=== PATIENT | female | born 1995 | race Caucasian/White ===

== ENCOUNTER → 2023-05-09 | Outpatient (CLI) | payer BC ==
[~2023-05-09] MED LIST: ACHD5005 PO; AMOX500C2; D-ME473S42; FEXO60TA; TRAM50TA2; TRM50T PO
--- NOTE | 2023-05-09 15:46 | Diagnostic Imaging Report ---
INDICATION: survey. TECHNIQUE: Multiple real-time grayscale images were obtained over the gravid uterus. COMPARISON: None FINDINGS: There is a single live fetus in a breech presentation. heart rate was recorded at 147 BPM. Placenta is fundal. No previa is detected. The amniotic fluid index is 12.3 cm. Cervical length is 4.6 cm. survey shows kidneys, bladder, and stomach to be unremarkable. brain is unremarkable. There is a four-chamber heart. There is a three-vessel cord with normal insertion. spine is unremarkable. Biometrical measurements are as follows: Biparietal 4.76 cm, age 20 weeks 3 days. Head circumference 17.65 cm, age 20 weeks 1 days. Abdominal circumference 15.89 cm, age 21 weeks 1 days. Femur length 3.22 cm, age 20 weeks 1 days. Sonographic estimate age: 20 weeks 4 days. Sonographic estimated date of delivery: 09/22/2023. Estimated Weight: 359 gm (+/- 53 gm). LMP percentile: 67%. heart rate: 147 beats per minute. number: 1 of 1. IMPRESSION: Single live IUP of 20 weeks 4 days gestational age. The estimated date of confinement sonographically is 09/22/2023. Dictated by: Dictated on workstation # [id number]
== END ==
LOC: RAD 08:23
PROVIDERS: ATTEND Obstetrics & Gynecology
DX: Z36.89 Encounter for other specified antenatal screening (principal); Z3A.20 20 weeks gestation of pregnancy
CPT/HCPCS: 76805